=== PATIENT | male | born 1930 | race Caucasian/White ===

== ENCOUNTER 2022-02-11 08:24 | Inpatient (IN) | payer OTHER ==
[~2022-02-11] VITALS: Ht 172.7 cm; Wt 77.6 kg
--- NOTE | 2022-02-11 08:30 | NUR ---
Patient to ER bed 8 for evaluation. Side rails up. Report given to Gabriel SARMIENTO.
[2022-02-11 08:36] VITALS: BP_SYST 101
--- NOTE | 2022-02-11 08:39 | NUR ---
ERMD AT BEDSIDE
--- NOTE | 2022-02-11 08:40 | NUR ---
PT PLACED ON MONITOR, B/P, PULSE OX, PT PULLING OFF EQUIPMENT
[2022-02-11] MEDS ORDERED: BENZTROPINE MESYLATE 2 MG/ 2 ML AMP IM ONE (08:45)
[2022-02-11] MEDS ORDERED: HALOPERIDOL LACTATE 5 MG/ML VIAL IM ONE (08:45)
--- NOTE | 2022-02-11 08:56 | NUR ---
[facility] STATED SHE WILL FIND ONE.
[2022-02-11 10:01] LABS: ANION GAP 7 (5-15); BASOPHILS % (AUTO) 0.1 % (0.0-2.0); CALCIUM 7.3 mg/dL (8.4-11.0); CHLORIDE 105 mmol/L (98-107); CREATININE 1.38 mg/dL (0.55-1.30); EOSINOPHILS # (AUTO) 0.1 K/uL (0.0-0.4); EOSINOPHILS % (AUTO) 0.9 % (0.0-4.0); GLUCOSE 113 mg/dL (70-99); HEMATOCRIT 36.3 % (36-54); HEMOGLOBIN 13.1 g/dL (14.0-18.0); LYMPHOCYTES # (AUTO) 1.7 K/uL (1.0-5.5); LYMPHOCYTES % (AUTO) 20.1 % (20.5-51.5); MEAN CORPUSCULAR HEMOGLOBIN 34 pg (27-31); MEAN CORPUSCULAR HGB CONC 36 % (32-36); MEAN CORPUSCULAR VOLUME 94 fL (79.0-98.0); MONOCYTES # (AUTO) 0.8 K/uL (0.0-1.0); MONOCYTES % (AUTO) 9.8 % (1.7-9.3); NEUTROPHILS # (AUTO) 5.9 K/uL (1.8-7.7); NEUTROPHILS % (AUTO) 69.1 % (40.0-70.0); PLATELET COUNT (AUTO) 116 K/uL (130-430); RED BLOOD CELL COUNT(AUTO) 3.84 MIL/uL (4.2-6.2); RED CELL DISTRIBUTION WIDTH 12.9 % (9.0-15.0); UREA NITROGEN, BLOOD 13 mg/dL (8-21); WHITE BLOOD COUNT (AUTO) 8.6 K/uL (4.8-10.8)
[2022-02-11 10:04] LABS: INR 1.1 (0.80-1.20); PROTHROMBIN TIME 11.5 SECS (9.5-12.5)
[2022-02-11 10:10] LABS: ALANINE AMINOTRANSFERASE 14 U/L (12-78); ALBUMIN 2.7 g/dL (3.4-4.8); ASPARTATE AMINOTRANSFERASE 32 U/L (10-37); TOTAL BILIRUBIN 1.7 mg/dL (0.0-1.0)
[2022-02-11 10:16] LABS: POTASSIUM 2.9 mmol/L (3.5-5.1)
--- NOTE | 2022-02-11 10:42 | NUR ---
k+2.9 ermd aware and covid positive
--- NOTE | 2022-02-11 10:42 | NUR ---
Pt repositioned in bed put on the TV and reassured to place and orientation of why in hospital. Pt noted Alma is his .
--- NOTE | 2022-02-11 11:48 | NUR ---
Pt repositioned reoriented and clean and dry with diaper affixed. Pt attempted to urine collection in urinal with no bladder control. specimen not collected at this time.
[2022-02-11] MEDS ORDERED: POTASSIUM CHLORIDE 20 MEQ TAB.PRT.SR PO ONE (12:45)
[2022-02-11 13:16] LABS: BILIRUBIN,URINE NEGATIVE (NEGATIVE); BLOOD, URINE 3+ (NEGATIVE); CLARITY/URINE SL CLOUDY (CLEAR); COLOR,URINE YELLOW (YELLOW); GLUCOSE,URINE NEGATIVE (NEGATIVE); KETONES,URINE NEGATIVE (NEGATIVE); LEUKOCYTE ESTERASE ,URINE 2+ (NEGATIVE); NITRITE, URINE NEGATIVE (NEGATIVE); PROTEIN URINE NEGATIVE (NEGATIVE)
[2022-02-11 13:54] LABS: RBC,URINE 20-50 /HPF (0-3)
[2022-02-11 13:55] LABS: BACTERIA,URINE RARE /HPF (None Seen)
[2022-02-11] MEDS ORDERED: NACL 0.9% 2,250 ML IV ONE (14:00)
[2022-02-11] MEDS ORDERED: VANCOMYCIN HCL 1,000 MG in NS 250 ML IV ONE ×2 (14:00→22:00)
[2022-02-11] MEDS ORDERED: cefTRIAXone 1 GM in D5W 50 ML IV ONE (14:30)
[2022-02-11] MEDS ORDERED: HYDROcodone/ACETAMIN 7.5-325 MG TAB PO PRN (14:45)
[2022-02-11] MEDS ORDERED: ONDANSETRON HCL 4 MG/2 ML VIAL IVP PRN (14:45)
[2022-02-11] MEDS ORDERED: ZOLPIDEM TARTRATE 5 MG TABLET PO PRN (14:45)
[2022-02-11] MEDS ORDERED: ACETAMINOPHEN 500 MG TABLET PO PRN (14:45)
[2022-02-11] MEDS ORDERED: DOCUSATE SODIUM 100 MG/10 ML UDC PO PRN (14:45)
[2022-02-11 15:13] LABS: FREE T4 (FREE THYROXINE) 1.4 ng/dl (0.8-1.5); PHOSPHORUS 3.1 mg/dL (2.7-4.5); THYROID STIMULATING HORMONE 3.62 uIu/mL (0.36-3.74)
--- NOTE | 2022-02-11 16:21 | NUR ---
SBAR TO RAFAEL(RN) AWARE THAT WE DID NOT RECEIVE A MED PACKAGE
--- NOTE | 2022-02-11 16:30 | NUR ---
received pt from e.r. with diagnosis of Covid 19 and uti under the care of dr barrientos, pt admitted in room 122a, kept on covid isolation. pt has no iv access, skin tear noted on r. fore arm. educated pt on the use of call light, tv and bed controls, pt needs furhter instructions. will cont to monitor.
--- NOTE | 2022-02-11 16:48 | NUR ---
CONSULTATION PAGED/CALLED Reason for Consultation: [] AFIB Person Who was Notified: [] CHUCKIE Consulting Physician: [] DR CABRERA Auto Fleet Maintenance Manager Specialty: [] CARDIO Ordering Physician: [] DR FUENTES
--- NOTE | 2022-02-11 16:50 | NUR ---
home meds entered, got pt med list from Susanna, child adolescent care at [facility] tel no,.[phone].
[2022-02-11] MEDS ORDERED: ASCO500T20 PO (16:55)
[2022-02-11] MEDS ORDERED: LIP20 PO (16:55)
[2022-02-11] MEDS ORDERED: POTA-80 PO (16:55)
[2022-02-11] MEDS ORDERED: FLOR.1 PO (16:55)
[2022-02-11] MEDS ORDERED: TAMS-11 PO (16:55)
[2022-02-11] MEDS ORDERED: FER300L PO (16:55)
[2022-02-11] MEDS ORDERED: MELA5TAB3 SL (16:55)
--- NOTE | 2022-02-11 16:55 | NUR ---
CONSULTATION PAGED/CALLED Reason for Consultation: [] UTI Person Who was Notified: [] CHUCKIE Consulting Physician: [] DR GUIDO Senior Business Development Analyst Specialty: [] ID Ordering Physician: [] DR FUENTES
--- NOTE | 2022-02-11 16:57 | NUR ---
CONSULTATION PAGED/CALLED Reason for Consultation: [] COVID Person Who was Notified: [] NANY Consulting Physician: [] DR CLEMENTS Rn Er Specialty: [] PULMO Ordering Physician: [] DR FUENTES
[2022-02-11 17:00] VITALS: BP_SYST 101
--- NOTE | 2022-02-11 19:51 | NUR ---
PT ENDORSED TO RN VIVEK, INFORMED NIGHT RN THAT ASSESSMENT HAS NOT BEEN DONE THIS RN GOT BUSY,WITH DC PROBLEMS WITH ANOTHER PT. ALSO ENDORSED THAT MED REC HAS BEEN DONE AND WE JUST NEED TO INFORM MD.
--- NOTE | 2022-02-11 21:05 | NUR ---
NEW IV START 22 G RT FA , tolerated .
--- NOTE | 2022-02-11 21:15 | NUR ---
PHONED DR FUENTES , NEW ORDERS FOR SOFT WRIST RESTRAINTS , PATIENT FALL RISK & PULLING OUT TUBES / .
--- NOTE | 2022-02-11 21:20 | NUR ---
PHONED FAMILY JEANETH LOYA AND UPDATED PT FALL RISK , FAMILY GAVE OK , FOR SOFT WRIST RESTRAINTS .
[2022-02-11] MEDS ORDERED: VANCOMYCIN HCL 1000 MG/VIAL IV ONE (22:04)
[2022-02-11] MEDS: D5NS 1,000 ML IV SCH (23:27)
[2022-02-12] VITALS: BP_SYST 137
--- NOTE | 2022-02-12 01:25 | NUR ---
PHOTO taken of Right FA SKIN TEAR put in medical Record .
[2022-02-12 02:00] VITALS: BP_SYST 138
[2022-02-12 08:00] VITALS: BP_SYST 156
--- NOTE | 2022-02-12 08:04 | NUR ---
RECEIVED PT WITH BILAT WRIST RESTRAINS, PER REPORT PT IS HIGH RISK FOR FALL AND NOT FOLLOWING COMMANDS REGARDING IV MEDICATIONS.
[2022-02-12] MEDS: D5NS 1,000 ML IV SCH ×4 (08:09→22:20)
[2022-02-12] MEDS: CEFTRIAXONE SOD 1 GM/ DEXTROSE,ISO 50 ML PREMIX IV SCH (08:21)
[2022-02-12] MEDS: PANTOPRAZOLE SODIUM 40 MG TAB PO SCH (08:21)
[2022-02-12] MEDS ORDERED: cefTRIAXone 1 GM in D5W 50 ML IV SCH ×4 (09:00)
[2022-02-12 09:03] LABS: BASOPHILS % (AUTO) 0.3 % (0.0-2.0); EOSINOPHILS # (AUTO) 0.1 K/uL (0.0-0.4); EOSINOPHILS % (AUTO) 0.7 % (0.0-4.0); HEMOGLOBIN 12.1 g/dL (14.0-18.0); LYMPHOCYTES # (AUTO) 1.8 K/uL (1.0-5.5); MEAN CORPUSCULAR HEMOGLOBIN 34 pg (27-31); MEAN CORPUSCULAR HGB CONC 36 % (32-36); MEAN CORPUSCULAR VOLUME 94 fL (79.0-98.0); MONOCYTES # (AUTO) 1.4 K/uL (0.0-1.0); MONOCYTES % (AUTO) 12.7 % (1.7-9.3); NEUTROPHILS # (AUTO) 7.9 K/uL (1.8-7.7); NEUTROPHILS % (AUTO) 70.3 % (40.0-70.0); PLATELET COUNT (AUTO) 123 K/uL (130-430); RED CELL DISTRIBUTION WIDTH 12.9 % (9.0-15.0); WHITE BLOOD COUNT (AUTO) 11.2 K/uL (4.8-10.8)
[2022-02-12 09:44] LABS: ANION GAP 6 (5-15); CALCIUM 8.2 mg/dL (8.4-11.0); CHLORIDE 107 mmol/L (98-107); CREATININE 1.18 mg/dL (0.55-1.30); GLUCOSE 114 mg/dL (70-99); UREA NITROGEN, BLOOD 18 mg/dL (8-21)
[2022-02-12 09:49] LABS: POTASSIUM 2.8 mmol/L (3.5-5.1)
[2022-02-12] MEDS ORDERED: FLUDROCORTISONE ACETATE 0.1 MG TABLET( FLORINEF) PO ONE (10:00)
[2022-02-12] MEDS ORDERED: ASCORBIC ACID 500 MG TABLET PO ONE (10:00)
[2022-02-12] MEDS ORDERED: POTASSIUM CHLORIDE 20 MEQ TAB.PRT.SR PO ONE (10:00)
--- NOTE | 2022-02-12 10:06 | NUR ---
COVID VACCINATION: PER [employer] INCOMING INSPECTOR MATIAS TEL NO [phone], PER PT'S DAUGHTER PT RECEIVED 2X VACCINATION FOR COVID 04/22/21 AND 05/12/21. BUT NO BOOSTER SHOTS.
--- NOTE | 2022-02-12 10:18 | NUR ---
PT GIVEN K-DUR AND AM MEDS ORDERED. PT TAKE PILLS BUT CHEWS THEM. AND THEN DRINK WATER OR ENSURE. PT TOLERATED WELL.
[2022-02-12 11:05] LABS: C-REACTIVE PROTEIN QUANT 4.7 mg/dL (0-0.5)
[2022-02-12 12:00] VITALS: BP_SYST 142
[2022-02-12] MEDS: POTASSIUM CHLORIDE 20 MEQ TAB.PRT.SR PO PRN (14:49)
--- NOTE | 2022-02-12 14:50 | NUR ---
40 meq kcl lottie , extra dose for k level of 2.8
[2022-02-12 16:00] VITALS: BP_SYST 148
--- NOTE | 2022-02-12 18:18 | NUR ---
PT'S SON CALLED EARLIER AND WAS UPDATED WITH PT'S STATUS, THE SON IS AWARE THAT PT STILL ON RESTRAINT D/T RISK OF INJURY/FALL AND NOT COOPERATIVE WITH IV FLUIDS.
[2022-02-12 21:00] VITALS: BP_SYST 135
[2022-02-12] MEDS ORDERED: ASCORBIC ACID 500 MG TABLET PO SCH (21:00)
--- NOTE | 2022-02-12 21:45 | NUR ---
SOFT WRIST RESTRAINTS RENEWAL noted from DR VARGAS , FAMILY IS UPDATED VIA TELEPHONE & AWARE .
[2022-02-12] MEDS: ASCORBIC ACID 500 MG TABLET PO SCH (22:19)
[2022-02-12] MEDS: FLUDROCORTISONE ACETATE 0.1 MG TABLET( FLORINEF) PO SCH (22:19)
[2022-02-12] MEDS: TAMSULOSIN HCL 0.4 MG CAP PO SCH (22:19)
[2022-02-12] MEDS: ATORVASTATIN 20 MG TABLET PO SCH (22:19)
[2022-02-13 01:00] VITALS: BP_SYST 155
--- NOTE | 2022-02-13 02:10 | NUR ---
hourly rounding patient awake FALL MEASURES IMPLEMENTED position change comfort measures tolerated no SOB noted kept clean also dry as needed / .
--- NOTE | 2022-02-13 04:51 | NUR ---
FALL MEASURES PRECAUTIONS effective bed alarm on & working Position change on schedule tolerated no SOB noted kept clean also dry as needed .
[2022-02-13 07:25] LABS: BASOPHILS % (AUTO) 0.3 % (0.0-2.0); EOSINOPHILS # (AUTO) 0.2 K/uL (0.0-0.4); EOSINOPHILS % (AUTO) 1.8 % (0.0-4.0); HEMATOCRIT 35.1 % (36-54); HEMOGLOBIN 12.9 g/dL (14.0-18.0); LYMPHOCYTES # (AUTO) 1.9 K/uL (1.0-5.5); LYMPHOCYTES % (AUTO) 19.8 % (20.5-51.5); MEAN CORPUSCULAR HEMOGLOBIN 34 pg (27-31); MEAN CORPUSCULAR HGB CONC 37 % (32-36); MEAN CORPUSCULAR VOLUME 92 fL (79.0-98.0); MONOCYTES % (AUTO) 10.5 % (1.7-9.3); NEUTROPHILS # (AUTO) 6.5 K/uL (1.8-7.7); NEUTROPHILS % (AUTO) 67.6 % (40.0-70.0); PLATELET COUNT (AUTO) 139 K/uL (130-430); RED CELL DISTRIBUTION WIDTH 13.2 % (9.0-15.0); WHITE BLOOD COUNT (AUTO) 9.6 K/uL (4.8-10.8)
[2022-02-13 07:56] VITALS: BP_SYST 166
--- NOTE | 2022-02-13 08:03 | NUR ---
PATIENT ASSISTED WITH BREAKFAST, PT TOOK ONLY 3 BITES AND 2 SIP OF ENSURE. WILL OFFERE AGAIN LATER.
[2022-02-13 08:05] LABS: ALANINE AMINOTRANSFERASE 23 U/L (12-78); ALBUMIN 2.7 g/dL (3.4-4.8); ANION GAP 7 (5-15); CHLORIDE 105 mmol/L (98-107); CREATININE 0.98 mg/dL (0.55-1.30); GLUCOSE 105 mg/dL (70-99); TOTAL BILIRUBIN 1.4 mg/dL (0.0-1.0); UREA NITROGEN, BLOOD 13 mg/dL (8-21)
[2022-02-13] MEDS: CHOLECALCIFEROL (VITAMIN D3) 5,000 UNIT TABLET PO SCH (08:31)
[2022-02-13] MEDS: CEFTRIAXONE SOD 1 GM/ DEXTROSE,ISO 50 ML PREMIX IV SCH (08:31)
[2022-02-13] MEDS: POTASSIUM CHLORIDE 20 MEQ TAB.PRT.SR PO SCH (08:31)
[2022-02-13] MEDS: PANTOPRAZOLE SODIUM 40 MG TAB PO SCH (08:31)
[2022-02-13] MEDS: ASCORBIC ACID 500 MG TABLET PO SCH ×2 (08:31→21:20)
[2022-02-13] MEDS: FLUDROCORTISONE ACETATE 0.1 MG TABLET( FLORINEF) PO SCH ×2 (08:31→21:20)
[2022-02-13] MEDS: ENOXAPARIN SODIUM 40 MG/0.4 ML SYRINGE SUBCUT SCH (08:32)
[2022-02-13 09:23] LABS: POTASSIUM 2.5 mmol/L (3.5-5.1)
[2022-02-13 09:24] LABS: ASPARTATE AMINOTRANSFERASE 60 U/L (10-37)
--- NOTE | 2022-02-13 10:12 | NUR ---
pt sleeping at this time
[2022-02-13] MEDS ORDERED: POTASSIUM CHLORIDE IV ONE (10:15)
[2022-02-13] MEDS ORDERED: POTASSIUM ACETATE IV ONE (10:15)
[2022-02-13] MEDS ORDERED: NS IV ONE ×2 (10:15)
[2022-02-13] MEDS ORDERED: KCL 40 mEq in 100 mL (PREMIX) 40 MEQ, LIDOCAINE JECT 2% PF 100 MG 75 MG in NS 150 ML IV ONE (10:15)
[2022-02-13] MEDS ORDERED: LIDOCAINE JECT IV ONE ×2 (10:15)
[2022-02-13] MEDS: D5NS 1,000 ML IV SCH ×2 (11:26→19:30)
[2022-02-13 11:35] VITALS: BP_SYST 145
[2022-02-13 18:00] VITALS: BP_SYST 145
[2022-02-13 19:00] VITALS: BP_SYST 142
--- NOTE | 2022-02-13 19:15 | NUR ---
change of shitf.pt.presents isolation status;droplet;covid 19+status.pt.presents affecet:restless.loc;confused.pt.presents restraints;wrist;bilateal in place.pt.presents iv access intact;patent.iv fluids infusing.pt.presents incontinence:bladder//BOWEL.per fdlac cpain m,agx pt.abse fcia;gprmaces/bodyu pstueng.calight/telkegpo w/iacs sof thpt.
[2022-02-13 20:00] VITALS: BP_SYST 142
--- NOTE | 2022-02-13 20:00 | NUR ---
pt.assessed.v/s assessed values wnl.pt.presents affect;restless.loc;confused.pt.presents restraints;wrist;bilateral in place. skin/circulation wnl.iv access intact;patent iv fluids infusing.per flacc pain mgx pt.absent facial grimaces/body posturing. pt.assessed for cleanliness.pt.repositioned.call light/telephone w/in access of the pt.
--- NOTE | 2022-02-13 21:00 | NUR ---
2100p medications administered.pt.presented reluctance to inget th pom mefcaztion slow arduoius tacsk,.pt./capblrto iges thjrt po meatrion s wpur dofcucltyns.,perf la cpin amgcx pt.,abase facxia;gporemaces/body apturin.clla ;lght/telehpo apce winaces so9f thpt.
[2022-02-13] MEDS: TAMSULOSIN HCL 0.4 MG CAP PO SCH (21:19)
[2022-02-13] MEDS: ATORVASTATIN 20 MG TABLET PO SCH (21:20)
--- NOTE | 2022-02-13 22:00 | NUR ---
pt.assessed.pt.presents affect;restless.loc confused.restraints;wrist bilateral in place.skin/circulation wnl.iv access intact; patent iv fluids infusing.per flacc pain mgx pt.absent facial grimaces/body posturing.pt.assessed for cleanliness.pt.repositioned. call light/telephone placed w/in access of the pt.
[2022-02-14] VITALS: BP_SYST 140
--- NOTE | 2022-02-14 | NUR ---
pt.assessed.v/s assessed values wnl.pt.presents affect;restless.loc;confused.restraints;wrist bilateral in place.skin/circulation wnl.per flacc pain mgx pt.absent facial grimaces/body posturing.pt.assessed for cleanliness.pt.repositioned.call light/telephone placed w/in access of the pt.
--- NOTE | 2022-02-14 02:00 | NUR ---
pt.assessed.restraints;wrist bilateral in place.skin/circulation wnl.iv access intact;patent.per flacc pain mgx pt.absent facial grimaces/body posturing.pt.assessed for cleanliness.pt.repositioned.call light/telephone placed w/in access of the pt.
--- NOTE | 2022-02-14 04:00 | NUR ---
pt.assessed.pt.presents affect;restless.loc;confused.restraints wrist bilateral in place.skin/circulation wnl.iv access intact; patent. i have attended to the wound care;rt.forearm.dsg changed.per flacc pain mgx pt.absent facial grimaces/body posturing. pt.assessed cleaned/repositioned.call light/telephone place w/in access of the pt.
[2022-02-14] MEDS: D5NS 1,000 ML IV SCH ×3 (05:07→18:58)
--- NOTE | 2022-02-14 06:07 | NUR ---
pt.assessed.restraints wrist bilateral in place.skin/circulation wnl.iv access intact;patent.pt.assessed for cleanliness.pt.repositioned.per flacc pain mgx pt.absent facial grimaces/body posturing.call light/telephone placed w/in access of the pt.
[2022-02-14 07:07] LABS: BASOPHILS % (AUTO) 0.3 % (0.0-2.0); EOSINOPHILS # (AUTO) 0.2 K/uL (0.0-0.4); EOSINOPHILS % (AUTO) 1.7 % (0.0-4.0); HEMATOCRIT 34.4 % (36-54); HEMOGLOBIN 12.5 g/dL (14.0-18.0); LYMPHOCYTES # (AUTO) 1.9 K/uL (1.0-5.5); LYMPHOCYTES % (AUTO) 19.7 % (20.5-51.5); MEAN CORPUSCULAR HEMOGLOBIN 34 pg (27-31); MEAN CORPUSCULAR HGB CONC 36 % (32-36); MEAN CORPUSCULAR VOLUME 93 fL (79.0-98.0); MONOCYTES % (AUTO) 10.6 % (1.7-9.3); NEUTROPHILS # (AUTO) 6.7 K/uL (1.8-7.7); NEUTROPHILS % (AUTO) 67.7 % (40.0-70.0); PLATELET COUNT (AUTO) 148 K/uL (130-430); RED BLOOD CELL COUNT(AUTO) 3.72 MIL/uL (4.2-6.2); RED CELL DISTRIBUTION WIDTH 13.1 % (9.0-15.0); WHITE BLOOD COUNT (AUTO) 9.8 K/uL (4.8-10.8)
[2022-02-14 07:49] LABS: ANION GAP 4 (5-15); CHLORIDE 105 mmol/L (98-107); GLUCOSE 113 mg/dL (70-99); UREA NITROGEN, BLOOD 11 mg/dL (8-21)
[2022-02-14 08:28] LABS: POTASSIUM 2.2 mmol/L (3.5-5.1)
[2022-02-14] MEDS: ENOXAPARIN SODIUM 40 MG/0.4 ML SYRINGE SUBCUT SCH (09:04)
[2022-02-14] MEDS: FLUDROCORTISONE ACETATE 0.1 MG TABLET( FLORINEF) PO SCH ×2 (09:06→21:23)
[2022-02-14] MEDS: CEFTRIAXONE SOD 1 GM/ DEXTROSE,ISO 50 ML PREMIX IV SCH (09:06)
[2022-02-14] MEDS: CHOLECALCIFEROL (VITAMIN D3) 5,000 UNIT TABLET PO SCH (09:06)
[2022-02-14] MEDS: ASCORBIC ACID 500 MG TABLET PO SCH ×2 (09:06→21:22)
[2022-02-14] MEDS: POTASSIUM CHLORIDE 20 MEQ TAB.PRT.SR PO SCH (09:06)
[2022-02-14] MEDS: PANTOPRAZOLE SODIUM 40 MG TAB PO SCH (09:06)
[2022-02-14 09:12] VITALS: BP_SYST 162
--- NOTE | 2022-02-14 09:12 | NUR ---
INITIAL ROUNDS Received pt AAOx1, very confused, restless at times. No s/s resp distress, no c/o pain or discomfort. Pt on airborne and droplet isolation precautions for Covid 19+. IVF infusing well to LFA at ordered rate with no s/s infiltration to site. HOB elevated for aspiration precautions. Pt fed breakfast and given morning medications. Pt voided, pt cleaned up and fresh chux placed. Pt repositioned with pillow support for skin care and comfort. Side rails up x4, bilat wrist restraints in place, bed alarm on for safety.
[2022-02-14] MEDS: POTASSIUM CHLORIDE 40 MEQ in 0.45% NS 250 ML IV SCH ×2 (11:50→16:29)
--- NOTE | 2022-02-14 14:07 | NUR ---
Dietitian Recommendations * Continue w/ pureed diet * Encourage po intake * Consider swallow evaluation Please refer to Nutrition Assessment for details. Addendum: 02/14/22 at [address] Amended: Links added.
--- NOTE | 2022-02-14 17:42 | NUR ---
P.T. NOTES P.T. EVAL COMPLETED; REFER TO EVAL FOR DETAILS.
--- NOTE | 2022-02-14 19:00 | NUR ---
received report from day rn. pt in bed resting. pt confused. rr even and unlabored on ra. pt in carlos eduardo wrist restraints. hob elevated. pt on covid isolation. bed alarm on. call light within reach. bed rails up. all needs meet at this time. will continue to monitor.
--- NOTE | 2022-02-14 19:10 | NUR ---
CLOSING NOTE Pt resting in bed with no s/s resp distress, no c/o pain or discomfort. Pt now more restless and pulling at his restraints. IVF infusing well at ordered rate with no s/s infiltration to site. Airborne, droplet and contact isolation precautions remain in place. Aspiration, skin and safety precautions remain in place.
[2022-02-14 20:58] VITALS: BP_SYST 174
[2022-02-14] MEDS: ATORVASTATIN 20 MG TABLET PO SCH (21:22)
[2022-02-14] MEDS: TAMSULOSIN HCL 0.4 MG CAP PO SCH (21:22)
--- NOTE | 2022-02-15 00:15 | NUR ---
pt cleaned. pt calm at this time. carlos eduardo wrist restraints intact. rr even and unlabored. bed alarm. will continue to monitor
[2022-02-15 00:42] VITALS: BP_SYST 143
[2022-02-15] MEDS: D5NS 1,000 ML IV SCH ×3 (05:45→23:09)
[2022-02-15 06:46] LABS: BASOPHILS % (AUTO) 0.5 % (0.0-2.0); EOSINOPHILS # (AUTO) 0.2 K/uL (0.0-0.4); EOSINOPHILS % (AUTO) 2.6 % (0.0-4.0); HEMATOCRIT 32.8 % (36-54); HEMOGLOBIN 12.2 g/dL (14.0-18.0); LYMPHOCYTES % (AUTO) 23.5 % (20.5-51.5); MEAN CORPUSCULAR HEMOGLOBIN 34 pg (27-31); MEAN CORPUSCULAR HGB CONC 37 % (32-36); MEAN CORPUSCULAR VOLUME 92 fL (79.0-98.0); MONOCYTES # (AUTO) 0.8 K/uL (0.0-1.0); MONOCYTES % (AUTO) 9.4 % (1.7-9.3); NEUTROPHILS # (AUTO) 5.4 K/uL (1.8-7.7); PLATELET COUNT (AUTO) 160 K/uL (130-430); RED BLOOD CELL COUNT(AUTO) 3.57 MIL/uL (4.2-6.2); RED CELL DISTRIBUTION WIDTH 13.3 % (9.0-15.0); WHITE BLOOD COUNT (AUTO) 8.4 K/uL (4.8-10.8)
--- NOTE | 2022-02-15 07:15 | NUR ---
opening note Received SBAR from night RN. Patient in bed, restraints in place, no sign of skin breakdown, good capillary refill. respirations even, non labored, bed in low and locked position call light within reach, bed alarm on
[2022-02-15 07:54] LABS: ANION GAP 7 (5-15); CALCIUM 7.7 mg/dL (8.4-11.0); CHLORIDE 105 mmol/L (98-107); CREATININE 0.87 mg/dL (0.55-1.30); GLUCOSE 109 mg/dL (70-99); UREA NITROGEN, BLOOD 9 mg/dL (8-21)
[2022-02-15 08:00] VITALS: BP_SYST 148
[2022-02-15] MEDS: CEFTRIAXONE SOD 1 GM/ DEXTROSE,ISO 50 ML PREMIX IV SCH (08:11)
[2022-02-15] MEDS: CHOLECALCIFEROL (VITAMIN D3) 5,000 UNIT TABLET PO SCH (08:11)
[2022-02-15] MEDS: ENOXAPARIN SODIUM 40 MG/0.4 ML SYRINGE SUBCUT SCH (08:11)
[2022-02-15] MEDS: FLUDROCORTISONE ACETATE 0.1 MG TABLET( FLORINEF) PO SCH ×2 (08:11→22:34)
[2022-02-15] MEDS: SPIRONOLACTONE 25 MG TABLET (ALDACTONE) PO SCH (08:12)
[2022-02-15] MEDS: ASCORBIC ACID 500 MG TABLET PO SCH ×2 (08:12→22:33)
[2022-02-15] MEDS: PANTOPRAZOLE SODIUM 40 MG TAB PO SCH (08:12)
--- NOTE | 2022-02-15 08:15 | NUR ---
nurse note patient in bed, respirations even, non labored, bed in low and locked position, call light within reach, bed alarm on. restraints in place, no sign of break down good capillary refill
--- NOTE | 2022-02-15 08:30 | NUR ---
NURSE NOTE PATIENT INCONTINENT OF BLADDER, PROVIDED LILO CARE, CHANGED LINENS, REPOSITIONED. TOLERATED WELL NO SIGNS OF DISTRESS NOTED.
[2022-02-15 08:54] LABS: POTASSIUM 2.2 mmol/L (3.5-5.1)
--- NOTE | 2022-02-15 09:29 | NUR ---
nurse note spoke with patients son, Trevor, updated on patient status. Son is aware that patient is on restraints, answered all questions, son verbalized understanding
[2022-02-15] MEDS: POTASSIUM CHLORIDE 20 MEQ TAB.PRT.SR PO PRN (10:02)
--- NOTE | 2022-02-15 11:15 | NUR ---
NURSE NOTE INFORMED DR MAYORGA OF PATIENTS POTASSIUM LEVEL. NEW ORDERS RECEIVED
--- NOTE | 2022-02-15 11:15 | NUR ---
md DR MAYORGA BEDSIDE EXAMINING PATIENT
[2022-02-15 11:35] VITALS: BP_SYST 132
[2022-02-15] MEDS ORDERED: POTASSIUM CHLORIDE 40 MEQ in NS 250 ML IV ONE ×2 (12:00→21:45)
--- NOTE | 2022-02-15 12:00 | NUR ---
NURSE NOTE PATIENT INCONTINENT OF BLADDER, PROVIDED LILO CARE, CHANGED LINENS, REPOSITIONED. TOLERATED WELL NO SIGNS OF DISTRESS NOTED.
--- NOTE | 2022-02-15 13:15 | NUR ---
WOUND CARE SEE MST ASSESSMENT
[2022-02-15] MEDS ORDERED: SPIR25TA PO (14:29)
[2022-02-15] MEDS ORDERED: CHOL500013 PO (14:29)
--- NOTE | 2022-02-15 15:04 | NUR ---
ELEVATED BP PATIENTS BP IS ELEVATED, 177/85, PAGED DR CABRERA
[2022-02-15 15:36] VITALS: BP_SYST 160
--- NOTE | 2022-02-15 15:45 | NUR ---
CALLED DR CABRERA REGARDING PATIENTS HIGH BLOOD PRESSURE. AWAITING CALL BACK. SPOKE WITH OFFICE STAFF
--- NOTE | 2022-02-15 15:52 | NUR ---
confirm with [facility] that patient can return [facility] [address] [place] [address] - angie [facility] at facility [facility] ambulance on will call [phone] trk# [id number] please confirm with son that he is ok with ambulance transfer , per records family providers transportation
--- NOTE | 2022-02-15 16:29 | NUR ---
NURSE NOTE PATIENT INCONTINENT OF BLADDER, PROVIDED LILO CARE, CHANGED LINENS, REPOSITIONED. TOLERATED WELL NO SIGNS OF DISTRESS NOTED.
--- NOTE | 2022-02-15 16:56 | NUR ---
INFORMED DR CABRERA OF PATIENTS ELEVATED BP, NEW ORDERS RECEIVED
[2022-02-15] MEDS ORDERED: LOSARTAN POTASSIUM 50 MG TABLET (COZAAR) PO ONE (17:00)
--- NOTE | 2022-02-15 19:45 | NUR ---
CLOSING NOTE PROVIDED SBAR TO NIGHT RN, PATIENT IN BED, RESPIRATIONS EVEN, NON LABORED, BED IN LOW AND LOCKED POSITION, CALL LIGHT WITHIN REACH, BED ALARM ON. IVF'S RUNNING ORDERED. ENDORSED TO NIGHT RN, FOLLOW UP ON POTASSIUM RESULT FROM REDRAW AFTER K RIDER FINISHED.
[2022-02-15 21:00] VITALS: BP_SYST 156
--- NOTE | 2022-02-15 21:34 | NUR ---
K+ 2.6/[facility] Received call at 2124 K+ 2.6. Paged Dr. Nicole (Dr. Lacie Power second crusher). Awaiting callback.
--- NOTE | 2022-02-15 21:39 | NUR ---
called back Rec'd call from Dr. Akhil Power re K+2.6. Order received for Potassium 40meq x1, K rider 40meq x1, BMP and Mg in AM. Will carry out.
[2022-02-15] MEDS ORDERED: POTASSIUM CHLORIDE 20 MEQ TAB.PRT.SR PO ONE (21:45)
[2022-02-15] MEDS ORDERED: KCL 20 mEq in 100 mL (PREMIX) 200 ML IV ONE (22:13)
--- NOTE | 2022-02-15 22:20 | NUR ---
Rounds/Pericare Pt awake, confused, no s/s distress. Pt incontinent of urine. Pericare/linens changed with USPS LETTER CARRIER assist, pt repositioned. Leeroy wrist restraints on. Safety maintained. To monitor.
[2022-02-15] MEDS ORDERED: KCL 20 mEq in 100 mL (PREMIX) 100 ML IV ONE (22:30)
[2022-02-15] MEDS: ATORVASTATIN 20 MG TABLET PO SCH (22:33)
[2022-02-15] MEDS: TAMSULOSIN HCL 0.4 MG CAP PO SCH (22:33)
[2022-02-15] MEDS: KCL 20 mEq in 100 mL (PREMIX) 100 ML IV ONE (22:40)
[2022-02-16] VITALS (7 sets, daily range): BP systolic 133–170
[2022-02-16] MEDS: KCL 20 mEq in 100 mL (PREMIX) 100 ML IV ONE (01:11)
--- NOTE | 2022-02-16 01:18 | NUR ---
Rounds Pt asleep, no s/s distress noted. IV Potassium currently infusing at ordered rate. Safety maintained. To monitor.
[2022-02-16] MEDS: D5NS 1,000 ML IV SCH ×2 (03:18→15:30)
--- NOTE | 2022-02-16 06:05 | NUR ---
Closing notes/Lab at bedside Pt alert, awake, no s/s distress noted. surgery technician at bedside. IVF infusing at ordered rate L. FA no s/s infiltration. Pt incontinent of uine and changed throughout the smith. R. forearm foam dressing C/D/I. Leeroy wrists restraints on. Bed low, locked, siderails up x4, alarm on. To endorse to AM nurse.
[2022-02-16 06:41] LABS: BASOPHILS % (AUTO) 0.5 % (0.0-2.0); EOSINOPHILS # (AUTO) 0.3 K/uL (0.0-0.4); EOSINOPHILS % (AUTO) 2.5 % (0.0-4.0); HEMOGLOBIN 12.3 g/dL (14.0-18.0); MEAN CORPUSCULAR HEMOGLOBIN 34 pg (27-31); MEAN CORPUSCULAR HGB CONC 37 % (32-36); MEAN CORPUSCULAR VOLUME 92 fL (79.0-98.0); MONOCYTES # (AUTO) 0.9 K/uL (0.0-1.0); MONOCYTES % (AUTO) 8.5 % (1.7-9.3); NEUTROPHILS # (AUTO) 6.8 K/uL (1.8-7.7); NEUTROPHILS % (AUTO) 68.5 % (40.0-70.0); PLATELET COUNT (AUTO) 173 K/uL (130-430); RED BLOOD CELL COUNT(AUTO) 3.61 MIL/uL (4.2-6.2); RED CELL DISTRIBUTION WIDTH 13.1 % (9.0-15.0)
[2022-02-16 07:14] LABS: CALCIUM 7.4 mg/dL (8.4-11.0); CHLORIDE 107 mmol/L (98-107); CREATININE 0.94 mg/dL (0.55-1.30); GLUCOSE 111 mg/dL (70-99); UREA NITROGEN, BLOOD 7 mg/dL (8-21)
[2022-02-16 07:27] LABS: ANION GAP 7 (5-15)
--- NOTE | 2022-02-16 07:30 | NUR ---
OPEN NOTE Patient laying in bed with soft wrist restraints on. No shortness of breath noted. No signs and symptoms of distress noted. Patient alert and oriented x 1. No signs of pain noted. All needs met and safety checks in place. Removed restraints to check for signs of redness for about 5 mins then placed back bilateral soft wrist restraints. Will continue to monitor patient.
[2022-02-16 07:42] LABS: POTASSIUM 2.5 mmol/L (3.5-5.1)
[2022-02-16] MEDS: POTASSIUM CHLORIDE 20 MEQ TAB.PRT.SR PO PRN (08:05)
[2022-02-16] MEDS: ENOXAPARIN SODIUM 40 MG/0.4 ML SYRINGE SUBCUT SCH (08:06)
[2022-02-16] MEDS: LOSARTAN POTASSIUM 50 MG TABLET (COZAAR) PO SCH (08:06)
[2022-02-16] MEDS: FLUDROCORTISONE ACETATE 0.1 MG TABLET( FLORINEF) PO SCH ×2 (08:06→20:49)
[2022-02-16] MEDS: PANTOPRAZOLE SODIUM 40 MG TAB PO SCH (08:07)
[2022-02-16] MEDS: CHOLECALCIFEROL (VITAMIN D3) 5,000 UNIT TABLET PO SCH (08:07)
[2022-02-16] MEDS: ASCORBIC ACID 500 MG TABLET PO SCH ×2 (08:07→20:49)
[2022-02-16] MEDS: SPIRONOLACTONE 25 MG TABLET (ALDACTONE) PO SCH (08:07)
[2022-02-16] MEDS: CEFTRIAXONE SOD 1 GM/ DEXTROSE,ISO 50 ML PREMIX IV SCH (08:42)
[2022-02-16] MEDS ORDERED: MAGNESIUM SULFATE 50 ML IV ONE (09:45)
[2022-02-16] MEDS: POTASSIUM CHLORIDE 40 MEQ in D5W 250 ML IV SCH ×2 (10:03→15:29)
--- NOTE | 2022-02-16 12:10 | NUR ---
PATIENT STATUS Patient in bed resting. No shortness of breath, no signs of distress, no pain. Soft wrist restraints in place. Patient's needs met, safety checks in place. Call light within reach with bed in lowest position. Will continue to monitor.
--- NOTE | 2022-02-16 18:33 | NUR ---
CLOSING NOTE Patient in bed resting, with restraints to bilateral wrist in place. No shortness of breath, no fever, no pain noted. Patient IV site patent and running on pump. Patient still on isolation precautions due to COVID and MDRO urine. All needs met and safety checks in place. Will endorse to caustic cresylate shift superintendent nurse.
--- NOTE | 2022-02-16 20:45 | NUR ---
Opening notes Pt awake, confused, restless, no s/s distress noted. IVF infusing at ordered rate R. FA no s/s infiltration. R. forearm skin tear dressing C/D/I. Bed low, locked, siderails up x4, alarm on. Contact/airborne isolation maintained. To monitor.
[2022-02-16] MEDS: ATORVASTATIN 20 MG TABLET PO SCH (20:49)
[2022-02-16] MEDS: TAMSULOSIN HCL 0.4 MG CAP PO SCH (20:49)
--- NOTE | 2022-02-16 21:00 | NUR ---
Rounds/Pericare Pt awake, confused, no s/s distress. Pt incontinent of urine. Pericare/linens changed with SSN/SSBN WEAPONS EQUIPMENT OPERATOR assist, pt repositioned. Leeroy wrist restraints released. Safety maintained. To monitor.
[2022-02-17] VITALS: BP_SYST 160
[2022-02-17] MEDS: D5NS 1,000 ML IV SCH (06:25)
--- NOTE | 2022-02-17 06:35 | NUR ---
Closing notes Pt asleep, easily awakens, no s/s distress noted. IVF infusing at ordered rate R. FA no s/s infiltration. Pt incontinent of urine pericare provided. R. forearm foam dressing C/D/I. Leeroy wrists restraints on. Bed low, locked, siderails up x4, alarm on. Contact/airborne isolation maintained. To endorse to AM nurse
--- NOTE | 2022-02-17 07:35 | NUR ---
OPEN NOTE Patient laying in bed with soft wrist restraints on (bilaterally). No shortness of breath noted, no fever. No signs and symptoms of distress noted. Patient alert and oriented x 1. No signs of pain noted. All needs met and safety checks in place. Removed restraints to check for signs of redness for about 10 mins then placed back bilateral soft wrist restraints. Will continue to monitor patient.
[2022-02-17 07:44] LABS: ANION GAP 4 (5-15); CALCIUM 7.9 mg/dL (8.4-11.0); CHLORIDE 106 mmol/L (98-107); CREATININE 0.76 mg/dL (0.55-1.30); GLUCOSE 113 mg/dL (70-99); UREA NITROGEN, BLOOD 7 mg/dL (8-21)
[2022-02-17 08:00] LABS: POTASSIUM 2.4 mmol/L (3.5-5.1)
[2022-02-17 08:05] VITALS: BP_SYST 152
[2022-02-17] MEDS: ENOXAPARIN SODIUM 40 MG/0.4 ML SYRINGE SUBCUT SCH (08:20)
[2022-02-17] MEDS: CEFTRIAXONE SOD 1 GM/ DEXTROSE,ISO 50 ML PREMIX IV SCH (08:20)
[2022-02-17] MEDS: ASCORBIC ACID 500 MG TABLET PO SCH ×2 (08:21→23:07)
[2022-02-17] MEDS: LOSARTAN POTASSIUM 50 MG TABLET (COZAAR) PO SCH (08:21)
[2022-02-17] MEDS: PANTOPRAZOLE SODIUM 40 MG TAB PO SCH (08:22)
[2022-02-17] MEDS: POTASSIUM CHLORIDE 20 MEQ TAB.PRT.SR PO PRN (08:22)
[2022-02-17] MEDS: CHOLECALCIFEROL (VITAMIN D3) 5,000 UNIT TABLET PO SCH (08:22)
[2022-02-17] MEDS: SPIRONOLACTONE 25 MG TABLET (ALDACTONE) PO SCH (08:22)
[2022-02-17] MEDS: FLUDROCORTISONE ACETATE 0.1 MG TABLET( FLORINEF) PO SCH ×2 (08:22→23:06)
--- NOTE | 2022-02-17 08:42 | NUR ---
ROUNDS/CRITICAL LAB DR. MAYORGA HERE AND MADE AWARE OF LABS. ORDERED TO GIVE K LESLIE AND MAGNESIUM MD LESLIE STATED NOT TO GIVE THE PRN POTASSIUM.
[2022-02-17] MEDS ORDERED: MAGNESIUM SULFATE 50 ML IV ONE (09:00)
[2022-02-17] MEDS: KCL 20 mEq in D5NS 1000 mL 1,000 ML IV SCH ×2 (09:29→19:30)
--- NOTE | 2022-02-17 10:30 | NUR ---
MEDS MAGNESIUM SULFATE STILL RUNNING AT THIS TIME. WILL GIVE POTASSIUM LESLIE AFTER MAGNESIUM LESLIE.
[2022-02-17] MEDS ORDERED: LOSA50TA3 PO (11:35)
[2022-02-17] MEDS: POTASSIUM CHLORIDE 40 MEQ in NS 250 ML IV SCH ×2 (11:36→17:00)
--- NOTE | 2022-02-17 12:00 | NUR ---
PATIENT ROUNDS Patient in bed resting. No shortness of breath, no signs of distress, no pain, no fever. Soft wrist restraints in place. Patient's needs met, safety checks in place. Call light within reach with bed in lowest position. Will continue to monitor.
[2022-02-17 12:50] VITALS: BP_SYST 149
--- NOTE | 2022-02-17 13:20 | NUR ---
Nutrition F/U Admitting Diagnosis COVID-19, UTI Reviewed Pertinent Medical/Surgical Hx Medical Record Medical History Comment: PMH: Dementia, HLD, BPH, iron deficient, h/o Prostate CA, wheelchair bound w/ ataxia, per physician notes Subjective Information: RD bedside visit deferred d/t airborne isolation precautions a/w COVID-19 and to minimize exposure. Per EMR review, pt is confused/disoriented; on RA; PO intake average of 55% x5 meal records; LBM x1 02/16. Pt is not yet meeting optimal nutritional needs. Current Diet Order/Nutrition Support: Pureed x7 days Patient/Significant Other Unable To Verbalize Education Provided Not Indicated Pertinent Medications: KClD5%NS at 100 ml/hr (408 kcal/day), VIT D3, lipitor, VIT C, protonix Pertinent Labs: K 2.4 L, BG 113 H, Ca 7.9 L Height (Feet) 5 feet Height (Inches) 8.00 inches Weight (Pounds) 171 pounds -- stable since 02/14 Patient Weight 77.649 kg Body Mass Index 26.00 kg/m2 %IBW [address]/Adjusted Body Weight 154#/70 kg Recent Weight Change No - None per safety counselor Weight Status Appropriate Usual Diet At Home Regular per safety counselor Skin Integrity Comment: Ed score 14 - erythema medial buttocks, R. forearm skin tear. Current % PO Fair, improving since 02/14 Estimated Energy Expenditure (kcals/day) 5550-4970 (20-25 kcals/kg CBW d/t decrease activity and age) Estimated Protein Required (g/day) 78-94 (1-1.2 g/kg CBW for geriatric maintenance) Estimated Fluid Required (l/day) 1.6-2 (1 ml/kcal/day for maintenance) Problem/Etiology/Signs/Symptoms Predicted suboptimal oral intake R/T poor appetite DESIGN LEADER AEB 37% PO intake recorded. *Ongoing Expected Outcomes/Goals Monitor tolerance of intake w/ goal of pt meeting greater than 75% of estimated needs, labs trending WNL, normal GI function, skin integrity, wt maintenance. Dietitian Recommendations * Continue w/ pureed diet * Encourage increase PO intakes Follow Up Moderate Risk: F/U in 3-5 days
--- NOTE | 2022-02-17 13:25 | NUR ---
Dietitian Recommendations * Continue w/ pureed diet * Encourage increase PO intakes LP, RD Please refer to Nutrition F/U for details.
[2022-02-17 16:50] VITALS: BP_SYST 143
[2022-02-17 16:52] LABS: ANION GAP 3 (5-15); CALCIUM 7.9 mg/dL (8.4-11.0); CHLORIDE 107 mmol/L (98-107); CREATININE 0.79 mg/dL (0.55-1.30); GLUCOSE 125 mg/dL (70-99); POTASSIUM 3.1 mmol/L (3.5-5.1); UREA NITROGEN, BLOOD 7 mg/dL (8-21)
--- NOTE | 2022-02-17 17:39 | NUR ---
Notes Spoke to Dr. Mares covering for Dr. Nicole re: K 3.1. Per MD will just watch out for potassium for now and no need to give the second bag of K jean.
[2022-02-17 20:00] VITALS: BP_SYST 148
[2022-02-17] MEDS: guaiFENesin/DEXTROMETHORPHAN 10 ML UDC PO PRN (23:06)
[2022-02-17] MEDS: ATORVASTATIN 20 MG TABLET PO SCH (23:06)
[2022-02-17] MEDS: TAMSULOSIN HCL 0.4 MG CAP PO SCH (23:07)
[2022-02-18] VITALS: BP_SYST 138
[2022-02-18 04:00] VITALS: BP_SYST 146
[2022-02-18] MEDS: KCL 20 mEq in D5NS 1000 mL 1,000 ML IV SCH ×2 (05:37→16:36)
--- NOTE | 2022-02-18 07:15 | NUR ---
NURSE NOTE RECEIVED SBAR FROM NIGHT RN, PATIENT IN BED, RESPIRATIONS EVEN, NON LABORED, BED IN LOW AND LOCKED POSITION CALL LIGHT WITHIN REACH, BED ALARM ON. RESTRAINTS ON BILATERAL WRISTS
--- NOTE | 2022-02-18 08:00 | NUR ---
NURSE NOTE IV INFILTRATION, STOPPED IV INFUSION, REMOVED IV, CATHETER INTACT. ARM IN COOL AND HARD TO TOUCH.
[2022-02-18] MEDS: KCL 20 mEq in 100 mL (PREMIX) 200 ML IV ONE ×2 (08:45→09:43)
--- NOTE | 2022-02-18 09:30 | NUR ---
nurse note applied warm compress to right forearm. elevated. capillary refill less than 3 seconds. pulses present
[2022-02-18] MEDS: ASCORBIC ACID 500 MG TABLET PO SCH ×2 (09:37→20:52)
[2022-02-18] MEDS: PANTOPRAZOLE SODIUM 40 MG TAB PO SCH (09:37)
[2022-02-18] MEDS: LOSARTAN POTASSIUM 50 MG TABLET (COZAAR) PO SCH (09:38)
[2022-02-18] MEDS: SPIRONOLACTONE 25 MG TABLET (ALDACTONE) PO SCH (09:38)
[2022-02-18] MEDS: CHOLECALCIFEROL (VITAMIN D3) 5,000 UNIT TABLET PO SCH (09:39)
[2022-02-18] MEDS: FLUDROCORTISONE ACETATE 0.1 MG TABLET( FLORINEF) PO SCH ×2 (09:39→20:52)
[2022-02-18] MEDS: ENOXAPARIN SODIUM 40 MG/0.4 ML SYRINGE SUBCUT SCH (09:39)
[2022-02-18] MEDS ORDERED: levoFLOXacin 250 MG TABLET PO SCH (10:00)
[2022-02-18 11:26] LABS: ANION GAP 4 (5-15); CALCIUM 8.1 mg/dL (8.4-11.0); CHLORIDE 106 mmol/L (98-107); CREATININE 0.94 mg/dL (0.55-1.30); GLUCOSE 131 mg/dL (70-99); UREA NITROGEN, BLOOD 12 mg/dL (8-21)
--- NOTE | 2022-02-18 11:30 | NUR ---
nurse note applied warm compress to right forearm. elevated. capillary refill less than 3 seconds. pulses present
[2022-02-18 11:58] VITALS: BP_SYST 137; BP_SYST 146
--- NOTE | 2022-02-18 12:45 | NUR ---
IV PLACEMENT: # 22 gauge angiocath placed to left forearm . Use of asceptic technique. Opsite placed over site. Blood return noted. Flushed with 10 cc of normal saline. No evidence of infiltration noted. Patient tolerated well.
[2022-02-18 13:02] LABS: POTASSIUM 2.8 mmol/L (3.5-5.1)
--- NOTE | 2022-02-18 13:05 | NUR ---
CRITICAL RECEIVED CRITICAL POTASSIUM 2.[address] DALE
[2022-02-18 13:23] LABS: BASOPHILS # (AUTO) 0.1 K/uL (0.0-0.2); BASOPHILS % (AUTO) 0.3 % (0.0-2.0); EOSINOPHILS # (AUTO) 0.1 K/uL (0.0-0.4); EOSINOPHILS % (AUTO) 0.7 % (0.0-4.0); HEMATOCRIT 32.6 % (36-54); HEMOGLOBIN 11.7 g/dL (14.0-18.0); LYMPHOCYTES # (AUTO) 1.6 K/uL (1.0-5.5); LYMPHOCYTES % (AUTO) 9.9 % (20.5-51.5); MEAN CORPUSCULAR HEMOGLOBIN 34 pg (27-31); MEAN CORPUSCULAR HGB CONC 36 % (32-36); MEAN CORPUSCULAR VOLUME 94 fL (79.0-98.0); MONOCYTES # (AUTO) 1.3 K/uL (0.0-1.0); NEUTROPHILS % (AUTO) 81.1 % (40.0-70.0); PLATELET COUNT (AUTO) 169 K/uL (130-430); RED BLOOD CELL COUNT(AUTO) 3.46 MIL/uL (4.2-6.2); RED CELL DISTRIBUTION WIDTH 13.3 % (9.0-15.0)
[2022-02-18 13:24] LABS: WHITE BLOOD COUNT (AUTO) 16.1 K/uL (4.8-10.8)
--- NOTE | 2022-02-18 14:49 | NUR ---
nurse note applied warm compress to right forearm. elevated. capillary refill less than 3 seconds. pulses present
--- NOTE | 2022-02-18 14:59 | NUR ---
INFORMED DR MAYORGA OF CRITICAL POTASSIUM 2.8, CONTINUE WITH POTASSIUM ORDERED.
[2022-02-18 16:15] VITALS: BP_SYST 131
[2022-02-18 17:24] LABS: BILIRUBIN,URINE NEGATIVE (NEGATIVE); BLOOD, URINE NEGATIVE (NEGATIVE); CLARITY/URINE SLIGHTLY HAZY (CLEAR); COLOR,URINE YELLOW (YELLOW); GLUCOSE,URINE NEGATIVE (NEGATIVE); KETONES,URINE NEGATIVE (NEGATIVE); LEUKOCYTE ESTERASE ,URINE 2+ (NEGATIVE); NITRITE, URINE NEGATIVE (NEGATIVE); PROTEIN URINE TRACE (NEGATIVE)
[2022-02-18 17:39] LABS: BACTERIA,URINE FEW /HPF (None Seen); MUCUS,URINE None Seen /LPF (None Seen); RBC,URINE 0-3 /HPF (0-3); YEAST,URINE Few /HPF (None Seen)
--- NOTE | 2022-02-18 19:25 | NUR ---
CLOSING NOTE PROVIDED SBAR TO NIGHT RN, PATIENT IN BED, RESPIRATIONS EVEN, NON LABORED, RESTRAINTS IN PLACE, NO SIGNS OF SKIN BREAKDOWN, GOOD CAPILLARY REFILL. BED IN LOW AND LOCKED POSITION, CALL LIGHT WITHIN REACH, BED ALARM ON. IVF'S RUNNING ORDERED. ENDORSED CARE TO NIGHT RN
[2022-02-18 20:00] VITALS: BP_SYST 150
[2022-02-18] MEDS: guaiFENesin/DEXTROMETHORPHAN 10 ML UDC PO PRN (20:52)
[2022-02-18] MEDS: TAMSULOSIN HCL 0.4 MG CAP PO SCH (20:52)
[2022-02-18] MEDS: ATORVASTATIN 20 MG TABLET PO SCH (20:52)
[2022-02-19 00:48] VITALS: BP_SYST 141
[2022-02-19] MEDS: KCL 20 mEq in D5NS 1000 mL 1,000 ML IV SCH ×3 (01:22→21:30)
[2022-02-19 08:00] VITALS: BP_SYST 150
--- NOTE | 2022-02-19 08:00 | NUR ---
INITIAL NOTES PATIENT IS AWAKE AND CONFUSED. NO S/S OF DISTRESS NOTED. PATIENT IS CALM. NO FACIAL GRIMACE NOTED. PATIENT WAS ON RESTRAINTS. R UPPER ARM SWOLLEN. TOOK OFF RESTRAINTS AND ELEVATED ARM. DR. MAYORGA CAME TO SEE PATIENT, IS MADE AWARE OF RIGHT UPPER ARM SWELLING, ORDERS RECEIVED. DISCONTINUING RESTRAINTS AT THIS TIME. PATIENT HAS BEEN CLEANED AND REPOSITIONED. HOB ELEVATED. VITAL SIGNS OBTAINED. SAFETY PRECAUTIONS IN PLACE AND CALL LIGHT WITHIN REACH. BED ALARM ON AND AT LOWEST POSITION.
[2022-02-19] MEDS: ASCORBIC ACID 500 MG TABLET PO SCH ×2 (10:01→20:34)
[2022-02-19] MEDS: FLUDROCORTISONE ACETATE 0.1 MG TABLET( FLORINEF) PO SCH ×2 (10:01→20:34)
[2022-02-19] MEDS: SPIRONOLACTONE 25 MG TABLET (ALDACTONE) PO SCH (10:02)
[2022-02-19] MEDS: PANTOPRAZOLE SODIUM 40 MG TAB PO SCH (10:02)
[2022-02-19] MEDS: LOSARTAN POTASSIUM 50 MG TABLET (COZAAR) PO SCH (10:02)
[2022-02-19] MEDS: ENOXAPARIN SODIUM 40 MG/0.4 ML SYRINGE SUBCUT SCH (10:03)
[2022-02-19] MEDS: CHOLECALCIFEROL (VITAMIN D3) 5,000 UNIT TABLET PO SCH (10:03)
[2022-02-19 12:00] VITALS: BP_SYST 163
[2022-02-19] MEDS: FLUCONAZOLE 100 mg/ NS 50 ML IV SCH (13:24)
[2022-02-19 16:00] VITALS: BP_SYST 169
[2022-02-19] MEDS ORDERED: amLODIPine BESYLATE 5 MG TABLET PO ONE (18:45)
--- NOTE | 2022-02-19 19:30 | NUR ---
CLOSING NOTES PATIENT HAS BEEN CALM THROUGHOUT SHIFT. NO S/S OF DISTRESS. DENIES PAIN, NO FACIAL GRIMACE NOTED. BP ELEVATED, DOCUMENTED, PAGED AND SPOKED TO DR. CABRERA, ORDERS RECEIVED. BREATHING IS EVEN AND NON LABORED. ALL NEEDS MET. SAFETY PRECAUTION IN PLACE. BED ALARM ON AND AT LOWEST POSITION. CALL LIGHT WITHIN REACH. ENDORSED CONTINUING OF CARE TO INCOMING NURSE.
[2022-02-19 20:00] VITALS: BP_SYST 145
[2022-02-19] MEDS: ATORVASTATIN 20 MG TABLET PO SCH (20:34)
[2022-02-19] MEDS: TAMSULOSIN HCL 0.4 MG CAP PO SCH (20:34)
[2022-02-19] MEDS: guaiFENesin/DEXTROMETHORPHAN 10 ML UDC PO PRN (20:34)
[2022-02-20 00:46] VITALS: BP_SYST 138
[2022-02-20 05:15] VITALS: BP_SYST 139
[2022-02-20] MEDS: KCL 20 mEq in D5NS 1000 mL 1,000 ML IV SCH (07:30)
[2022-02-20 08:00] VITALS: BP_SYST 134
--- NOTE | 2022-02-20 08:00 | NUR ---
INITIAL NOTES PATIENT IS AWAKE, CONFUSED, AND CALM. NO S/S OF DISTRESS NOTED. NO SOB. DENIES ANY PAIN, NO FACIAL GRIMACE NOTED. BREATHING IS EVEN AND NONLABORED. PATIENT HAS BEEN REPOSITIONED. HOB ELEVATED. VITAL SIGNS OBTAINED DOCUMENTED. SAFETY PRECAUTIONS IN PLACE AND CALL LIGHT WITHIN REACH.
[2022-02-20 08:26] LABS: ALANINE AMINOTRANSFERASE 21 U/L (12-78); ALBUMIN 2.3 g/dL (3.4-4.8); ANION GAP 6 (5-15); ASPARTATE AMINOTRANSFERASE 27 U/L (10-37); CALCIUM 7.9 mg/dL (8.4-11.0); CHLORIDE 105 mmol/L (98-107); CREATININE 0.89 mg/dL (0.55-1.30); GLUCOSE 93 mg/dL (70-99); TOTAL BILIRUBIN 0.9 mg/dL (0.0-1.0); UREA NITROGEN, BLOOD 12 mg/dL (8-21)
[2022-02-20 08:57] LABS: BASOPHILS # (AUTO) 0.1 K/uL (0.0-0.2); BASOPHILS % (AUTO) 0.6 % (0.0-2.0); EOSINOPHILS # (AUTO) 0.2 K/uL (0.0-0.4); EOSINOPHILS % (AUTO) 1.6 % (0.0-4.0); HEMATOCRIT 30.2 % (36-54); HEMOGLOBIN 10.8 g/dL (14.0-18.0); LYMPHOCYTES # (AUTO) 1.7 K/uL (1.0-5.5); MEAN CORPUSCULAR HEMOGLOBIN 34 pg (27-31); MEAN CORPUSCULAR HGB CONC 36 % (32-36); MEAN CORPUSCULAR VOLUME 94 fL (79.0-98.0); MONOCYTES # (AUTO) 1.1 K/uL (0.0-1.0); MONOCYTES % (AUTO) 9.7 % (1.7-9.3); NEUTROPHILS # (AUTO) 8.4 K/uL (1.8-7.7); NEUTROPHILS % (AUTO) 73.1 % (40.0-70.0); PLATELET COUNT (AUTO) 162 K/uL (130-430); RED BLOOD CELL COUNT(AUTO) 3.22 MIL/uL (4.2-6.2); RED CELL DISTRIBUTION WIDTH 13.3 % (9.0-15.0); WHITE BLOOD COUNT (AUTO) 11.5 K/uL (4.8-10.8)
[2022-02-20 09:42] LABS: POTASSIUM 2.8 mmol/L (3.5-5.1)
--- NOTE | 2022-02-20 09:51 | NUR ---
critical lab potassium 2.8. spoke to Dr. Mas. put in orders.
[2022-02-20] MEDS ORDERED: POTASSIUM CHLORIDE 20 MEQ TAB.PRT.SR PO ONE (10:15)
[2022-02-20] MEDS ORDERED: POTASSIUM CHLORIDE 40 MEQ in NS 250 ML IV ONE (10:15)
[2022-02-20] MEDS: CHOLECALCIFEROL (VITAMIN D3) 5,000 UNIT TABLET PO SCH (10:20)
[2022-02-20] MEDS: ENOXAPARIN SODIUM 40 MG/0.4 ML SYRINGE SUBCUT SCH (10:20)
[2022-02-20] MEDS: PANTOPRAZOLE SODIUM 40 MG TAB PO SCH (10:21)
[2022-02-20] MEDS: ASCORBIC ACID 500 MG TABLET PO SCH ×2 (10:21→21:13)
[2022-02-20] MEDS: FLUDROCORTISONE ACETATE 0.1 MG TABLET( FLORINEF) PO SCH ×2 (10:22→21:13)
[2022-02-20] MEDS: LOSARTAN POTASSIUM 50 MG TABLET (COZAAR) PO SCH (10:24)
--- NOTE | 2022-02-20 10:30 | NUR ---
NOTES NEW IV 22 G R FOREARM.
[2022-02-20 11:21] VITALS: BP_SYST 150
[2022-02-20] MEDS: FLUCONAZOLE 100 mg/ NS 50 ML IV SCH (11:53)
--- NOTE | 2022-02-20 16:02 | NUR ---
CONFIRMED WITH [facility]/HCP CM MS ASHVIN THAT PT CANNOT GO BACK TO THE BOARD AND C[facility] BUT TO A SNF THAT CURRENTLY IS BEING ARRANGED. IV ANTIBIOTIC IS ORDERED AND WILL BE ADMINISTERED AT THE SNF.
[2022-02-20 16:31] VITALS: BP_SYST 145
--- NOTE | 2022-02-20 18:55 | NUR ---
CLOSING NOTES PATIENT HAS BEEN CLEANED AND REPOSITIONED. PATIENT PULLED OUT HIS IV, WILL ENDORSE TO INCOMING NURSE. BREATHING IS EVEN AND NONLABORED. NO DISTRESS OR PAIN NOTED. ALL NEEDS MET. SAFETY PRECAUTIONS IN PLACE AND CALL LIGHT WITHIN REACH.
[2022-02-20 20:00] VITALS: BP_SYST 136
[2022-02-20] MEDS: POTASSIUM CHLORIDE 20 MEQ TAB.PRT.SR PO SCH (21:14)
[2022-02-20] MEDS: guaiFENesin/DEXTROMETHORPHAN 10 ML UDC PO PRN (21:14)
[2022-02-20] MEDS: ATORVASTATIN 20 MG TABLET PO SCH (21:14)
[2022-02-20] MEDS: TAMSULOSIN HCL 0.4 MG CAP PO SCH (21:14)
[2022-02-21 02:00] VITALS: BP_SYST 142
[2022-02-21 07:13] LABS: CALCIUM 8.2 mg/dL (8.4-11.0); CHLORIDE 106 mmol/L (98-107); CREATININE 0.81 mg/dL (0.55-1.30); GLUCOSE 90 mg/dL (70-99); UREA NITROGEN, BLOOD 12 mg/dL (8-21)
--- NOTE | 2022-02-21 07:26 | NUR ---
PHYSICAL THERAPY CO-SIGN The Physical Therapy Progress Notes documented by Executive Receptionist have been reviewed. Reviewed/Co-Signed by: [place] Documentation Done by: ASHLY MOREAU PTA Addendum: 02/21/22 at 7338 by Lake Taylor PT Amended: Links added.
--- NOTE | 2022-02-21 07:30 | NUR ---
OPENING NOTE Patient in bed resting, no sign of distress and patient denies pain. Patient currently has no IV access, awaiting order for midline placement. Patient was cleaned and bedding changed due to incontinence. All needs met at this time and safety checks made.
[2022-02-21 07:59] LABS: ANION GAP 5 (5-15)
[2022-02-21 08:00] VITALS: BP_SYST 160
[2022-02-21 08:40] LABS: POTASSIUM 2.9 mmol/L (3.5-5.1)
[2022-02-21] MEDS: ENOXAPARIN SODIUM 40 MG/0.4 ML SYRINGE SUBCUT SCH ×2 (09:00→09:52)
[2022-02-21] MEDS: FLUDROCORTISONE ACETATE 0.1 MG TABLET( FLORINEF) PO SCH ×2 (09:52→20:54)
[2022-02-21] MEDS: PANTOPRAZOLE SODIUM 40 MG TAB PO SCH (09:53)
[2022-02-21] MEDS: POTASSIUM CHLORIDE 20 MEQ TAB.PRT.SR PO SCH ×2 (09:53→20:54)
[2022-02-21] MEDS: CHOLECALCIFEROL (VITAMIN D3) 5,000 UNIT TABLET PO SCH (09:53)
[2022-02-21] MEDS: ASCORBIC ACID 500 MG TABLET PO SCH ×2 (09:53→20:54)
[2022-02-21] MEDS: LOSARTAN POTASSIUM 50 MG TABLET (COZAAR) PO SCH (09:54)
[2022-02-21] MEDS: SPIRONOLACTONE 25 MG TABLET (ALDACTONE) PO SCH (09:54)
[2022-02-21] MEDS ORDERED: POTASSIUM CHLORIDE 40 MEQ in NS 250 ML IV ONE (10:30)
[2022-02-21] MEDS: FLUCONAZOLE 100 mg/ NS 50 ML IV SCH (11:00)
[2022-02-21 11:31] LABS: BASOPHILS # (AUTO) 0.1 K/uL (0.0-0.2); BASOPHILS % (AUTO) 0.9 % (0.0-2.0); EOSINOPHILS # (AUTO) 0.1 K/uL (0.0-0.4); EOSINOPHILS % (AUTO) 1.4 % (0.0-4.0); HEMATOCRIT 32.2 % (36-54); HEMOGLOBIN 11.6 g/dL (14.0-18.0); LYMPHOCYTES # (AUTO) 1.7 K/uL (1.0-5.5); LYMPHOCYTES % (AUTO) 16.9 % (20.5-51.5); MEAN CORPUSCULAR HEMOGLOBIN 34 pg (27-31); MEAN CORPUSCULAR HGB CONC 36 % (32-36); MEAN CORPUSCULAR VOLUME 95 fL (79.0-98.0); MONOCYTES % (AUTO) 9.9 % (1.7-9.3); NEUTROPHILS # (AUTO) 7.2 K/uL (1.8-7.7); NEUTROPHILS % (AUTO) 70.9 % (40.0-70.0); PLATELET COUNT (AUTO) 184 K/uL (130-430); RED BLOOD CELL COUNT(AUTO) 3.41 MIL/uL (4.2-6.2); RED CELL DISTRIBUTION WIDTH 13.3 % (9.0-15.0); WHITE BLOOD COUNT (AUTO) 10.2 K/uL (4.8-10.8)
[2022-02-21 12:00] VITALS: BP_SYST 156
--- NOTE | 2022-02-21 15:40 | NUR ---
ROUNDS Patient in bed resting with eyes closed. No sign of distress or pain. Beck catheter in place draining to gravity, urine is dark andrew with some blood clots. Patient refused his lunch other than a few bites. All needs met at this time and safety checks made. Addendum: 02/21/22 at 1543 by Paige Butts LVN DISREGARD CHARTED ON WRONG PATIENT
--- NOTE | 2022-02-21 19:36 | NUR ---
CLOSING NOTE Patient in bed resting after eating dinner. Alert and oriented to self only. Midline in place, intact and running prescribed fluid; patient tolerating well. No sign of distress, patient denies pain. Patient has been turned q2h throughout shift. All needs met and safety checks made. Endorsed to shift commander nurse.
[2022-02-21 20:00] VITALS: BP_SYST 136
[2022-02-21] MEDS: guaiFENesin/DEXTROMETHORPHAN 10 ML UDC PO PRN (20:55)
[2022-02-21] MEDS: ATORVASTATIN 20 MG TABLET PO SCH (20:55)
[2022-02-21] MEDS: TAMSULOSIN HCL 0.4 MG CAP PO SCH (20:55)
[2022-02-22 00:17] VITALS: BP_SYST 106
--- NOTE | 2022-02-22 01:00 | NUR ---
THIS RN MAKING HOURLY ROUNDS AND NOTED PATIENT HAD REMOVED HIS MIDLINE PLACED ON 02/21/2022 AND IT WAS LYING ON THE FLOOR. PATIENT HAS NO IV MEDICATION DUE THIS SHIFT AND WAS UNABLE TO GET IV ACCESS RESTARTED. WILL REPORT TO CHARGE NURSE AND ONCOMING NURSE.
[2022-02-22 08:00] VITALS: BP_SYST 141
--- NOTE | 2022-02-22 08:00 | NUR ---
OPENING NOTE Patient in bed resting, no sign of distress or pain. Patient is alert and oriented to self only. Patient currently has no IV access. Patient updated on his plan of care. Patient had an excellent appetite with breakfast. All needs met at this time and safety checks made.
--- NOTE | 2022-02-22 09:05 | NUR ---
patient will discharge to [facility] room [address] [facility] [address] [phone] Medic [facility] ambulance last picker 2:30PM [phone] auth# [id number] called floor spoke with Alejandra called and spoke with patient son Trevor he is ok with transfer
[2022-02-22] MEDS: FLUDROCORTISONE ACETATE 0.1 MG TABLET( FLORINEF) PO SCH (09:49)
[2022-02-22] MEDS: ENOXAPARIN SODIUM 40 MG/0.4 ML SYRINGE SUBCUT SCH (09:49)
[2022-02-22] MEDS: ASCORBIC ACID 500 MG TABLET PO SCH (09:49)
[2022-02-22] MEDS: CHOLECALCIFEROL (VITAMIN D3) 5,000 UNIT TABLET PO SCH (09:49)
[2022-02-22] MEDS: PANTOPRAZOLE SODIUM 40 MG TAB PO SCH (09:50)
[2022-02-22] MEDS: POTASSIUM CHLORIDE 20 MEQ TAB.PRT.SR PO SCH (09:50)
[2022-02-22] MEDS: SPIRONOLACTONE 25 MG TABLET (ALDACTONE) PO SCH (09:50)
[2022-02-22] MEDS: LOSARTAN POTASSIUM 50 MG TABLET (COZAAR) PO SCH (09:51)
--- NOTE | 2022-02-22 10:34 | NUR ---
SPOKE TO MD Spoke with Dr Ruiz, confirmed that the patient will be discharged without IV antibiotics. Vinnie D/C'ed per MD's orders.
--- NOTE | 2022-02-22 10:38 | NUR ---
SPOKE WITH [employer] DIRECTOR OF ESTATE Spoke with Lois and informed her that the patient is not being discharged on antibiotics. Stated she would reach out to the Son and call back with further discharge instructions.
--- NOTE | 2022-02-22 11:07 | NUR ---
spoke with patient cheryl Murray and [facility] patient will be returning to [facility] 2:30
[2022-02-22 11:40] VITALS: BP_SYST 141
[2022-02-22 14:00] VITALS: BP_SYST 126
--- NOTE | 2022-02-23 07:13 | NUR ---
PHYSICAL THERAPY CO-SIGN The Physical Therapy Progress Notes documented by [facility] have been reviewed. Reviewed/Co-Signed by: [place] Documentation Done by: ASHLY MOREAU PTA Addendum: 02/23/22 at 0714 by [place] PT Amended: Links added.
== END 2022-02-22 14:05 | disposition home or self-care (01) | DRG 177 ==
LOC: SED 08:24 → STU 14:44
PROVIDERS: ADMIT Internal Medicine; ATTEND Internal Medicine
PROC: 05HY33Z Insertion of Infusion Device into Upper Vein, Percutaneous Approach (ICD-10-PCS; principal; 2022-02-21)
PROC: B54MZZA Ultrasonography of Right Upper Extremity Veins, Guidance (ICD-10-PCS; 2022-02-21)
DX: U07.1 COVID-19 (principal); G93.41 Metabolic encephalopathy; N39.0 Urinary tract infection, site not specified; Z16.24 Resistance to multiple antibiotics; N17.9 Acute kidney failure, unspecified; E87.1 Hypo-osmolality and hyponatremia; E44.0 Moderate protein-calorie malnutrition; E11.22 Type 2 diabetes mellitus with diabetic chronic kidney disease; E66.9 Obesity, unspecified; F03.90 Unspecified dementia, unspecified severity, without behavioral disturbance, psychotic disturbance, mood disturbance, and anxiety; N18.9 Chronic kidney disease, unspecified; N40.0 Benign prostatic hyperplasia without lower urinary tract symptoms; Z85.46 Personal history of malignant neoplasm of prostate; E87.6 Hypokalemia; E78.5 Hyperlipidemia, unspecified; Z99.3 Dependence on wheelchair; I95.1 Orthostatic hypotension; I50.9 Heart failure, unspecified; E88.09 Other disorders of plasma-protein metabolism, not elsewhere classified; Z68.26 Body mass index [BMI] 26.0-26.9, adult
CPT/HCPCS: 36415; 71045; 80048; 80053; 80061; 81000; 82150; 83036; 83605; 83690; 83735; 83880; 84100; 84132; 84439; 84443; 84484; 85025; 85379; 85610-TC; 86140; 87040; 87081; 87086; 93005; 93306; 93971; 96372; 97110-GP; 97112-GP; 97116-GP; 97163-GP; 97530-GP; 99285; G0378; J0515; J0696; J1450; J1630; J1650; J3370; J3475; J3480; J7050; J7060